=== PATIENT | male | born 2000 | race Caucasian/White ===

== ENCOUNTER 2021-06-24 06:31 | Emergency (ER) | payer MEDICAID, OTHER ==
[~2021-06-24] VITALS: Ht 177.8 cm; Wt 79.4 kg
[2021-06-24 09:00] VITALS: BP 131/80
== END 2021-06-24 10:02 | disposition home or self-care (01) ==
LOC: ER 06:31
DX: B00.1 Herpesviral vesicular dermatitis (principal); Z20.822 Contact with and (suspected) exposure to COVID-19
CPT/HCPCS: 36415; 87426